=== PATIENT | male | born 1975 | race Caucasian/White ===

== ENCOUNTER 2023-06-14 13:09 | Outpatient (CLI) | payer OTHER | END 2023-06-14 13:10 | disposition home or self-care (01) | LOC: BICRAD 13:09 | PROVIDERS: ATTEND Podiatrist | DX: M72.2 Plantar fascial fibromatosis (principal); M19.90 Unspecified osteoarthritis, unspecified site; M24.872 Other specific joint derangements of left ankle, not elsewhere classified; Q66.70 Congenital pes cavus, unspecified foot; M19.072 Primary osteoarthritis, left ankle and foot ==